=== PATIENT | male | born 1985 | race African-American/Black ===

== ENCOUNTER 2017-03-17 21:46 | Emergency (ER) | payer MEDICAID ==
[2017-03-17 22:50] LABS: BASOPHILS 0.2 % (0-2); EOSINOPHILS 3.7 % (0-7); HEMATOCRIT 45.3 % (42.0-54.0); HEMOGLOBIN 15.1 g/dL (13.5-17.5); IMMATURE GRANULOCYTES 0.2 % (0-5); LYMPHOCYTES 43.1 % (15-50); MCH 29.2 pg (26.0-34.0); MCHC 33.3 g/dL (31.0-37.0); MCV 87.6 fL (80.0-100.0); MEAN PLATELET VOLUME 10.3 fL (7.4-10.4); MONOCYTES 7.5 % (2-11); NEUTROPHILS 45.3 % (40-80); PLATELET COUNT 216 10x3/uL (130-400); RBC 5.17 10x6/uL (4.20-6.10); RDW 14.4 % (11.5-14.5); WBC 5.9 10x3/uL (4.8-10.8)
[2017-03-17 23:21] LABS: ALBUMIN 3.8 g/dL (3.4-5.0); ANION GAP 11.4 mmol/L (8-16); BILIRUBIN - TOTAL 0.47 mg/dL (0.2-1.3); CALCIUM 8.6 mg/dL (8.5-10.1); CARBON DIOXIDE 29.1 mmol/L (21.0-32.0); CREATININE - SERUM 1.2 mg/dL (0.6-1.3); POTASSIUM - SERUM 3.5 mmol/L (3.5-5.1); PROTEIN - SERUM 7.4 g/dL (6.4-8.2)
[2017-03-17 23:46] LABS: TROPONIN-I 0.017 ng/mL (0.000-0.060)
== END 2017-03-18 00:20 | disposition home or self-care (01) ==
LOC: D.ER 21:46
PROVIDERS: Family Medicine
DX: R07.89 Other chest pain (principal)